=== PATIENT | female | born 1960 | race African-American/Black ===

== ENCOUNTER 2021-04-23 19:07 | Emergency (ER) | payer SELFPAY ==
[~2021-04-23] VITALS: Ht 175.3 cm; Wt 68.0 kg
--- NOTE | 2021-04-23 19:10 | NUR ---
PATIENT WAS BIBRA WITH C/O ABDOMINAL PAIN ACCOMPANIED BY NAUSEA STATING "ATE A BAD CHEESE". PT WAS AAO X 3-4, BREATHING EVEN AND UNLABORED. PT WAS SEEN AND EXAMINED BY DR GRANT. PT ATTACHED TO MONITOR AND PULSE OX. WILL CONTINUE TO MONITOR PT AND CARRY OUT MD [facility].
[2021-04-23] MEDS ORDERED: FAMOTIDINE/PF INJ 20 MG/2 ML VIAL IV ONE ×2 (20:00→20:09)
[2021-04-23] MEDS ORDERED: ONDANSETRON HCL/PF 4 MG/2 ML VIAL IVP ONE (20:00)
[2021-04-23] MEDS ORDERED: IV NS 0.9% 1,000 ML BAG IV ONE (20:00)
[2021-04-23] MEDS ORDERED: ONDANSETRON HCL/PF 4 MG/2 ML VIAL ONE (20:09)
--- NOTE | 2021-04-23 20:47 | NUR ---
IV LINE ESTABLISHED AT R HAND 20G, BLOOD DRAWN AND SENT TO LAB
--- NOTE | 2021-04-23 20:49 | NUR ---
RAD AT BEDSIDE
[2021-04-23 21:00] LABS: BASOPHILS # (AUTO) 0.1 K/uL (0.0-0.2); BASOPHILS % (AUTO) 1.1 % (0.0-2.0); EOSINOPHILS % (AUTO) 0.4 % (0.0-6.0); HEMATOCRIT 34 % (33-45); LYMPHOCYTES # (AUTO) 2.8 K/uL (0.8-4.8); LYMPHOCYTES % (AUTO) 41.2 % (20.0-44.0); MEAN CORPUSCULAR HGB CONC 32 g/dl (31.0-36.0); MEAN CORPUSCULAR VOLUME 78 fL (82-100); MONOCYTES # (AUTO) 0.6 K/uL (0.1-1.30); MONOCYTES % (AUTO) 8.5 % (2.0-12.0); NEUTROPHILS # (AUTO) 3.3 K/uL (1.8-8.9); NEUTROPHILS % (AUTO) 48.8 % (43.0-81.0); PLATELET COUNT (AUTO) 296 K/uL (150-450); RED BLOOD CELL COUNT(AUTO) 4.42 MIL/uL (4.0-5.2); WHITE BLOOD COUNT (AUTO) 6.7 K/uL (4.3-11.0)
[2021-04-23 21:12] LABS: BILIRUBIN,URINE NEGATIVE (NEGATIVE); COLOR,URINE YELLOW (YELLOW); LEUKOCYTE ESTERASE ,URINE MODERATE (NEGATIVE); NITRITE, URINE POSITIVE (NEGATIVE); PH,URINE 6.5 (5.0-8.0); PROTEIN,URINE NEGATIVE (NEGATIVE); UGLUCOSE NEGATIVE (NEGATIVE); UROBILINOGEN,URINE 0.2 EU/dL (0.2)
[2021-04-23 21:17] LABS: CALCIUM, SERUM 8.8 mg/dL (8.5-10.1); CARBON DIOXIDE 24 mmol/L (21-32); CHLORIDE 105 mmol/L (98-107); CREATININE 0.8 mg/dL (0.6-1.3); GLUCOSE 84 mg/dL (74-106); POTASSIUM 3.4 mmol/L (3.5-5.1); SODIUM SERUM 141 mmol/L (136-145); UREA NITROGEN, BLOOD 14 mg/dL (7-18)
[2021-04-23 21:23] LABS: ALANINE AMINOTRANSFERASE 29 U/L (12-78); ALBUMIN 3.6 g/dL (3.4-5.0); ALKALINE PHOSPHATASE 129 U/L (46-116); ASPARTATE AMINOTRANSFERASE 29 U/L (15-37); BILIRUBIN,DIRECT 0.1 mg/dL (0.0-0.2); BILIRUBIN,TOTAL 0.3 mg/dL (0.2-1.0); LIPASE 77 U/L (73-393); TOTAL PROTEIN, SERUM 7.4 g/dL (6.4-8.2)
[2021-04-23 21:29] LABS: BACTERIA,URINE 4+ /HPF (None Seen); SQUAMOUS EPITHELIAL CELL,UR Few /HPF (None Seen); WBC,URINE 81-100 /HPF (0-3)
[2021-04-23] MEDS ORDERED: CEFTRIAXONE 1 G in IV D5W 50 ML IV ONE (22:00)
[2021-04-23] MEDS ORDERED: CEFTRIAXONE 1GM BAG (ER ONLY) 50 ML IV ONE (22:06)
--- NOTE | 2021-04-23 22:50 | NUR ---
COVID AG SWAB DONE AND SENT TO LAB
[2021-04-23 23:19] LABS: ALCOHOL, BLOOD 222 mg/dL (0-0)
[2021-04-23] MEDS ORDERED: CEPH500C2 PO (23:45)
[2021-04-23] MEDS ORDERED: FAMO-131 PO (23:46)
--- NOTE | 2021-04-24 00:29 | NUR ---
[facility] [phone]
--- NOTE | 2021-04-24 02:53 | NUR ---
TELEPHONE CALL TO PT DAUGHTER TO LET HER KNOW PT IS NOW DISCHARGED AND IF SHE CAN PICK HER UP. LEFT VOICE MESSAGE AND PROVIDED CALL BACK NUMBER.
--- NOTE | 2021-04-24 05:00 | NUR ---
PT DAUGHTER DEBRA, NO ANSWER.
--- NOTE | 2021-04-24 06:12 | NUR ---
TELEPHONE CALL TO PT'S DAUGHTER, MADDIE, STATED SHE IS COMING TO PICK PT IN 25 MINUTES.
--- NOTE | 2021-04-24 06:30 | NUR ---
Patient discharged to home in stable condition. Written and verbal after care instructions given. Patient verbalizes understanding of instruction. Patient picked up by daughter via private vehicle.
[2021-04-24 07:04] VITALS: BP 128/66
== END 2021-04-24 06:30 | disposition home or self-care (01) ==
LOC: ER 19:13
DX: R10.13 Epigastric pain (principal); N39.0 Urinary tract infection, site not specified; Z20.822 Contact with and (suspected) exposure to COVID-19; R94.31 Abnormal electrocardiogram [ECG] [EKG]; Z59.0 Homelessness; Z85.3 Personal history of malignant neoplasm of breast; Z90.11 Acquired absence of right breast and nipple; F10.129 Alcohol abuse with intoxication, unspecified; Y90.7 Blood alcohol level of 200-239 mg/100 ml; R91.8 Other nonspecific abnormal finding of lung field
CPT/HCPCS: 36415; 71045; 76705; 80048; 80076; 80307; 80320; 81001; 83690; 83735; 83880; 84484; 85025; 87077; 87086; 87186; 87426; 93005; 96361; 96365; 96375; 99285; C9803; J0696 ×2; J2405; J3490; J7060; G0480

== ENCOUNTER → 2021-04-23 | Emergency (ER) | payer SELFPAY ==
[~2021-04-23] MED LIST: CEPH500C2 PO; FAMO-131 PO
--- NOTE | 2021-04-23 18:08 | NUR ---
CALLED PT IN [place], NO ANSWER.
--- NOTE | 2021-04-23 18:17 | NUR ---
CALLED TO TRIAGE,NO ANSWER
== END | disposition left against medical advice (07) ==
LOC: ER 18:16
DX: Z53.21 Procedure and treatment not carried out due to patient leaving prior to being seen by health care provider (principal)

== ENCOUNTER 2021-12-19 19:45 | Emergency (ER) | payer OTHER ==
[~2021-12-19] VITALS: Ht 162.6 cm; Wt 63.5 kg
--- NOTE | 2021-12-19 20:05 | NUR ---
BIBSELF C/O MILLY FOOT PAIN FOR A FEW WEEKS. DENIES ANY TRAUMA OR INJURIES. STATES SHE IS HAVING INCREASED PAIN ON AMBULATION. PT AWAKE AND ALERT WITH UNLABORED RESPIRATIONS. NO GROSS DEFORMITIES NOTED ON ASSESSMENT. V/S WNL.
[2021-12-19] MEDS ORDERED: KETOROLAC TROMETHAMINE INJ 30 MG/ML VIAL ONE (20:14)
--- NOTE | 2021-12-19 20:18 | NUR ---
XRAY AT BEDSIDE
[2021-12-19] MEDS ORDERED: KETOROLAC TROMETHAMINE INJ 30 MG/ML VIAL IM ONE (20:30)
[2021-12-19] MEDS ORDERED: FURO-145 PO (21:35)
[2021-12-19] MEDS ORDERED: IBUP-1957 PO (21:35)
[2021-12-19 22:10] VITALS: BP 133/81
--- NOTE | 2021-12-19 22:10 | NUR ---
Patient discharged to home in stable condition. Written and verbal after care instructions given. Patient verbalizes understanding of instruction.
== END 2021-12-19 22:10 | disposition home or self-care (01) ==
LOC: ER 19:48
DX: M25.572 Pain in left ankle and joints of left foot (principal); F41.9 Anxiety disorder, unspecified; Z85.3 Personal history of malignant neoplasm of breast; Z90.11 Acquired absence of right breast and nipple; Z60.2 Problems related to living alone; Z79.899 Other long term (current) drug therapy
CPT/HCPCS: 73610 ×2; 73630 ×2; 96372; 99284; J1885

== ENCOUNTER 2024-02-11 23:37 | Emergency (ER) | payer OTHER ==
[~2024-02-11] VITALS: Ht 170.2 cm; Wt 65.8 kg
[~2024-02-11 23:37] MED LIST changes: +FURO-145 PO; +IBUP-1957 PO
[2024-02-11 23:43] VITALS: TEMP 98.5
[2024-02-12 01:01] LABS: CALCIUM, SERUM 10.5 mg/dL (8.5-10.1); POTASSIUM 3.7 mmol/L (3.5-5.1)
[2024-02-12] MEDS: IV NS 0.9% 1,000 ML BAG IV ONE (01:01)
[2024-02-12] MEDS ORDERED: KETOROLAC TROMETHAMINE 15 MG/ML VIAL ONE ×2 (01:01→02:25)
[2024-02-12] MEDS: KETOROLAC TROMETHAMINE 15 MG/ML VIAL IV ONE ×2 (01:04→02:29)
[2024-02-12 01:09] LABS: ALBUMIN 3.8 g/dL (3.4-5.0); BILIRUBIN,DIRECT 0.2 mg/dL (0.0-0.2); BILIRUBIN,TOTAL 0.7 mg/dL (0.2-1.0); TOTAL PROTEIN, SERUM 8.8 g/dL (6.4-8.2)
[2024-02-12 01:18] LABS: APPEARANCE,URINE CLOUDY (CLEAR); BILIRUBIN,URINE NEGATIVE (NEGATIVE); BLOOD, URINE 3+ Ery/uL (NEGATIVE); COLOR,URINE DARK YELLOW (YELLOW); KETONES,URINE NEGATIVE (NEGATIVE); LEUKOCYTE ESTERASE ,URINE TRACE (NEGATIVE); NITRITE, URINE NEGATIVE (NEGATIVE); PROTEIN,URINE TRACE mg/dl (NEGATIVE); UGLUCOSE NEGATIVE (NEGATIVE)
[2024-02-12 01:20] LABS: BASOPHILS # (AUTO) 0.1 K/uL (0.0-0.2); BASOPHILS % (AUTO) 0.8 % (0.0-2.0); EOSINOPHILS % (AUTO) 0.6 % (0.0-6.0); HEMATOCRIT 42 % (33-45); HEMOGLOBIN 14.8 g/dL (11.5-14.8); LYMPHOCYTES # (AUTO) 2.2 K/uL (0.8-4.8); LYMPHOCYTES % (AUTO) 27.2 % (20.0-44.0); MEAN CORPUSCULAR HEMOGLOBIN 33 PG (26.0-33.0); MEAN CORPUSCULAR HGB CONC 35 g/dl (31.0-36.0); MEAN CORPUSCULAR VOLUME 95 fL (82-100); MONOCYTES # (AUTO) 0.9 K/uL (0.1-1.30); MONOCYTES % (AUTO) 11.7 % (2.0-12.0); NEUTROPHILS # (AUTO) 4.8 K/uL (1.8-8.9); NEUTROPHILS % (AUTO) 59.7 % (43.0-81.0); PLATELET COUNT (AUTO) 245 K/uL (150-450); RED BLOOD CELL COUNT(AUTO) 4.44 MIL/uL (4.0-5.2); RED CELL DISTRIBUTION WIDTH 13.4 % (11.5-15.0); WHITE BLOOD COUNT (AUTO) 8.1 K/uL (4.3-11.0)
[2024-02-12 01:49] LABS: ADD URINE CULTURE NO; BACTERIA,URINE Rare /HPF (None Seen); RBC,URINE 21-50 /HPF (0-2); SQUAMOUS EPITHELIAL CELL,UR Few /HPF (None Seen)
[2024-02-12] MEDS ORDERED: IBUP-1957 PO (04:59)
[2024-02-12 05:06] VITALS: BP 131/92; O2SAT 98
== END 2024-02-12 05:06 | disposition home or self-care (01) ==
LOC: ER 23:37
DX: N13.2 Hydronephrosis with renal and ureteral calculous obstruction (principal); Z79.1 Long term (current) use of non-steroidal anti-inflammatories (NSAID); Z60.2 Problems related to living alone; Z79.899 Other long term (current) drug therapy; Z98.890 Other specified postprocedural states
CPT/HCPCS: 99285; 74176; 96374; 76705; 93971; 96361; 96376; 85025; 80048; 87086; 83690; 80076; 81001; 36415; J7030; J1885 ×2

== ENCOUNTER 2024-10-02 02:40 | Emergency (ER) | payer MEDICAID ==
[~2024-10-02] VITALS: Ht 180.3 cm; Wt 49.0 kg
[2024-10-02 03:18] VITALS: BP 144/88; TEMP 98.2
[2024-10-02 03:44] VITALS: O2SAT 95
== END 2024-10-02 03:45 | disposition home or self-care (01) ==
LOC: ER 02:42
DX: M79.674 Pain in right toe(s) (principal); Z77.21 Contact with and (suspected) exposure to potentially hazardous body fluids; F17.200 Nicotine dependence, unspecified, uncomplicated; Z79.1 Long term (current) use of non-steroidal anti-inflammatories (NSAID); Z79.899 Other long term (current) drug therapy; Z60.2 Problems related to living alone

== ENCOUNTER 2024-11-13 02:28 | Emergency (ER) | payer MEDICAID ==
[~2024-11-13] VITALS: Ht 165.1 cm; Wt 61.2 kg
[2024-11-13] MEDS ORDERED: ONDANSETRON 4 MG TAB.RAPDIS ONE ×2 (02:56→08:00)
[2024-11-13] MEDS ORDERED: MAG HYDROX/AL HYDROX/SIMETH 30 ML UDC ONE (02:56)
[2024-11-13] MEDS ORDERED: FAMOTIDINE (20 MG) 20 MG TABLET ONE (02:56)
[2024-11-13] MEDS: MAG HYDROX/AL HYDROX/SIMETH 30 ML UDC PO ONE (03:00)
[2024-11-13] MEDS: FAMOTIDINE (20 MG) 20 MG TABLET PO ONE (03:00)
[2024-11-13] MEDS: ONDANSETRON 4 MG TAB.RAPDIS SL ONE ×2 (03:00→08:11)
[2024-11-13 03:25] LABS: ALANINE AMINOTRANSFERASE 22 U/L (12-78); ALBUMIN 3.9 g/dL (3.4-5.0); ALKALINE PHOSPHATASE 121 U/L (46-116); ASPARTATE AMINOTRANSFERASE 47 U/L (15-37); BILIRUBIN,DIRECT 0.3 mg/dL (0.0-0.2); BILIRUBIN,TOTAL 0.8 mg/dL (0.2-1.0); CALCIUM, SERUM 9.4 mg/dL (8.5-10.1); CARBON DIOXIDE 24 mmol/L (21-32); CHLORIDE 106 mmol/L (98-107); CREATININE 0.8 mg/dL (0.6-1.3); GLUCOSE 86 mg/dL (74-106); LIPASE 16 U/L (16-77); POTASSIUM 3.6 mmol/L (3.5-5.1); SALICYLATE 3.3 mg/dL (2.8-20.0); SODIUM SERUM 144 mmol/L (136-145); TOTAL PROTEIN, SERUM 7.6 g/dL (6.4-8.2); UREA NITROGEN, BLOOD 16 mg/dL (7-18)
[2024-11-13 03:26] LABS: ACETAMINOPHEN <10 ug/ml (10-30); ALCOHOL, BLOOD < 3 mg/dL (0-10)
[2024-11-13 03:30] LABS: BASOPHILS % (AUTO) 0.7 % (0.0-2.0); EOSINOPHILS % (AUTO) 0.4 % (0.0-6.0); HEMATOCRIT 46 % (33-45); HEMOGLOBIN 15.7 g/dL (11.5-14.8); LYMPHOCYTES # (AUTO) 1.5 K/uL (0.8-4.8); LYMPHOCYTES % (AUTO) 27.5 % (20.0-44.0); MEAN CORPUSCULAR HEMOGLOBIN 35 PG (26.0-33.0); MEAN CORPUSCULAR HGB CONC 34 g/dl (31.0-36.0); MEAN CORPUSCULAR VOLUME 101 fL (82-100); MONOCYTES # (AUTO) 0.3 K/uL (0.1-1.30); MONOCYTES % (AUTO) 4.9 % (2.0-12.0); NEUTROPHILS # (AUTO) 3.6 K/uL (1.8-8.9); NEUTROPHILS % (AUTO) 66.5 % (43.0-81.0); PLATELET COUNT (AUTO) 134 K/uL (150-450); RED BLOOD CELL COUNT(AUTO) 4.52 MIL/uL (4.0-5.2); RED CELL DISTRIBUTION WIDTH 13.7 % (11.5-15.0); WHITE BLOOD COUNT (AUTO) 5.4 K/uL (4.3-11.0)
[2024-11-13 03:47] LABS: APPEARANCE,URINE CLEAR (CLEAR); BILIRUBIN,URINE NEGATIVE (NEGATIVE); BLOOD, URINE NEGATIVE Ery/uL (NEGATIVE); COLOR,URINE YELLOW (YELLOW); KETONES,URINE NEGATIVE (NEGATIVE); LEUKOCYTE ESTERASE ,URINE NEGATIVE (NEGATIVE); NITRITE, URINE NEGATIVE (NEGATIVE); PROTEIN,URINE NEGATIVE (NEGATIVE); UGLUCOSE NEGATIVE (NEGATIVE); UROBILINOGEN,URINE 0.2 EU/dL (0.2)
[2024-11-13 03:57] LABS: BARBITURATE, URINE NEGATIVE (NEGATIVE); BENZODIAZEPINE, URINE NEGATIVE (NEGATIVE); CANNABINOID, URINE NEGATIVE (NEGATIVE); COCCAINE, URINE NEGATIVE (NEGATIVE); OPIATE, URINE NEGATIVE (NEGATIVE); PHENCYCLIDINE SCREEN,URINE NEGATIVE (NEGATIVE)
[2024-11-13 03:58] LABS: AMPHETAMINE, URINE POSITIVE (NEGATIVE)
[2024-11-13] MEDS ORDERED: NALO4SPR BNOSTRILS (07:53)
[2024-11-13] MEDS ORDERED: LORAZEPAM 0.5 MG TABLET ONE ×2 (08:00→14:54)
[2024-11-13] MEDS: LORAZEPAM 1 MG TABLET PO ONE (08:11)
[2024-11-13 13:00] VITALS: BP 135/92; TEMP 98.7; O2SAT 96
[2024-11-13] MEDS: LORAZEPAM 0.5 MG TABLET PO ONE (14:56)
== END 2024-11-13 15:16 ==
LOC: ER 02:28
DX: F10.129 Alcohol abuse with intoxication, unspecified (principal); R10.9 Unspecified abdominal pain; F17.200 Nicotine dependence, unspecified, uncomplicated; F15.129 Other stimulant abuse with intoxication, unspecified; Z79.1 Long term (current) use of non-steroidal anti-inflammatories (NSAID); Z79.899 Other long term (current) drug therapy; Z20.822 Contact with and (suspected) exposure to COVID-19; Y90.0 Blood alcohol level of less than 20 mg/100 ml
CPT/HCPCS: 99285; 85025; 80048; 83690; 80076; 81003; 36415; 87426; 80143; 80320; 80307; Q0162 ×2; G0480